=== PATIENT | male | born 2000 | race Caucasian/White ===

== ENCOUNTER 2019-04-10 05:20 | Emergency (ER) | payer BC, SELFPAY ==
[2019-04-10 05:26] VITALS: BP 127/68; PULSE 81; RESP 18; TEMP 37.4; O2SAT 98
--- NOTE | 2019-04-10 05:34 | W.ED.GENAD ---
Discharge Plan Disposition Patient Disposition: STILL A PATIENT Condition: Good Discharge Details Chief Complaint: Abd Prob Clinical Impression: Gastritis, Gastric ulcer Primary Care Provider: Pastor Alarcon ED Provider: Pavan Ribeiro Home Meds and New Rx's Prescriptions: New pantoprazole [Protonix] 40 mg tablet,delayed release (DR/EC) 40 mg PO DAILY Qty: 60 RF: 0 No Action ibuprofen 600 MG tablet 600 mg PO Q6H PRN (Reason: Pain) Qty: 20 RF: 0 Discharge Instructions Instructions: Gastritis (ED) Additional Instructions: At this time your labs are normal, I suspect that your symptoms are secondary to a mild gastric ulcer. Please take the medication Protonix as directed to help improve your stomach lining and reduce any potential ulcers. Please continue to avoid any spicy foods, citrus-based products, tomato-based products. If you notice any worsening of your symptoms, or any new symptoms such as vomiting, diarrhea, fever, chills, shortness of breath, chest pain, numbness, weakness, or fainting , please return immediately to the emergency department for reevaluation. Please follow up with your primary care provider as soon as possible for reassessment and reevaluation. As always, it was a pleasure participating in your medical care today. Stand Alone Forms: Work Release Referrals: Pastor Alarcon [Primary Care Provider] - Discharge Data Discharge Date/Time-TO BE ENTERED AT DEPARTURE: 04/10/19 08:41 Medical Decision Making <Kieran Wang DO - Last Filed: 04/10/19 21:41> This is a 18-year-old male who presents with 4 weeks of mild epigastric achiness. No red flags of vomiting or diarrhea. No hematemesis. Exam demonstrates a notably nontender abdomen with no significant epigastric or generalized abdominal tenderness. No clinical evidence of an acute surgical abdomen. Suspect that patient's symptoms likely secondary to mild gastric ulcer or gastritis. We will get a CT scan to rule out acute process, evaluate for pancreatitis, and reassess. 7:33 AM The patient's laboratory work-up has returned, no significant abnormalities, normal lipase, normal urinalysis, no clinical evidence of significant pancreatitis or other abnormality. No white count or left shift. Still pending CT results at this time, if CT scan is negative I feel that the patient be discharged home on antacid medications with close follow-up with his primary care provider. Repeat abdominal assessment demonstrates no clinical evidence of an acute surgical abdomen. Case will be signed out to my colleague Dr. Ventura for final disposition pending CT scan results. <Pavan Ribeiro MD - Last Filed: 04/10/19 08:38> 8:37 Patient resting comfortably, repeat abd exam snt without rebound/guarding pt indicates that discomfort is milder but continues to be localized epigastrium. CT results normal - w/o evidence of appendicitis. RTER discussed including limits of CT scanning. Pt agrees to RTER and fu plan will dc as above. HPI <Kieran Wang DO - Last Filed: 04/10/19 21:41> General Date/Time Provider Initiated Documentation: 04/10/19 05:25. HPI Narrative: This is a 18-year-old male with no past medical history who presents today for evaluation of epigastric pain for the last 4 weeks. He describes the pain as a mild achy sensation. It is not worsened with food. It is worse in the morning. He denies any relieving factors. He has been avoiding any spicy foods for the last few weeks. He denies any vomiting, nausea, or diarrhea. He denies any dark or tarry stools, hematochezia melena or acholic stool. Pain does not radiate to the lower aspect of his abdomen. He denies any back or flank pain. He denies any urinary frequency. He denies any previous abdominal surgeries, significant alcohol use, or history of pancreatitis. He denies any other complaints at this time. No other modifying factors. Related Data Home Medications Medication Instructions Recorded Confirmed ibuprofen 600 mg PO Q6H PRN #20 tab 06/29/17 04/10/19 pantoprazole [Protonix] 40 mg PO DAILY #60 tab 04/10/19 Previous Rx's Medication Instructions Recorded ibuprofen 600 mg PO Q6H PRN #20 tab 06/29/17 pantoprazole [Protonix] 40 mg PO DAILY #60 tab 04/10/19 Allergies Allergy/AdvReac Type Severity Reaction Status Date / Time No Known Allergies Allergy Unverified 06/29/17 07:58 General Stated Complaint: Abd Prob MAREK: 3 Review of Systems <Kieran Wang DO - Last Filed: 04/10/19 21:41> Review of Systems All systems reviewed & are unremarkable except as noted in HPI and below PFSH <Kieran Wang, DO - Last Filed: 04/10/19 21:41> Medical History Asthma Pneumonia Surgical History (Updated 12/31/16 @ 10:45 by Buffy Gaspar) wisdom tooth extractions Family History Mother Fibromyalgia Father Hypertension Brother No problems noted. Other Hematuria Social History Smoking/Tobacco Use Status: Never Drug use: Never Do you feel safe at home: Yes Do you feel safe in your relationship?: Yes Exam <Kieran Wang DO - Last Filed: 04/10/19 21:41> Narrative Exam Narrative: 1.Const: Well-nourished, Well-developed, appearing stated age 2.Eyes: PERRL, no conjunctival injection, and symmetrical lids. 3.ENT: Atraumatic external nose and ears. Moist MM. Neck: Symmetric, trachea midline, No thyromegaly. 4.CVS: +S1/S2, No murmurs or gallops. Peripheral pulses 2+ and equal in all extremities. Brisk capillary refill in all extremities. 5.RESP: Unlabored respiratory effort. Clear to auscultation bilaterally. No wheezes rales or rhonchi 6.GI: Soft, Nontender/Nondistended, No hepatosplenomegaly. No guarding or rebound. No pain at McBurney's point, negative Degroot sign, no CVA tenderness. 7.MSK: Normocephalic/Atraumatic, Extremities w/o deformity or ttp No cyanosis or clubbing, Normal movement of all extremities 8.Skin: Warm, Dry. No rashes or lesions. 9.Neuro: inflated pad buffer II-XII grossly intact. Sensation grossly intact, no focal neurologic deficits. 10.Psych: (AAO) x3. Appropriate mood and affect Course <Kieran Wang DO - Last Filed: 04/10/19 21:41> Vital Signs Temperature 37.4 C 04/10/19 05:26 Pulse 81 04/10/19 05:26 Respiratory Rate 18 04/10/19 05:26 Blood Pressure 127/68 04/10/19 05:26 Pulse Oximetry 98 04/10/19 05:26 Temperature 37.4 C 04/10/19 05:26 Temperature Source Temporal Artery Scan 04/10/19 05:26 Pulse 81 04/10/19 05:26 Respiratory Rate 18 04/10/19 05:26 Blood Pressure 127/68 04/10/19 05:26 Blood Pressure Position Supine 04/10/19 05:26 Pulse Oximetry 98 04/10/19 05:26 Oxygen Delivery Method Room Air 04/10/19 05:26 Oxygen Flow Rate 0 04/10/19 05:26 Sign Out <Kieran Wang DO - Last Filed: 04/10/19 21:41> Sign Out Data: Sign Out Comment: Pending CT results, expected to be negative for acute surgical process. Suspect that symptoms are secondary to mild gastritis from peptic ulcer disease. Last updated by Kieran Wang DO at 04/10/19 07:40
[2019-04-10 06:00] LABS: Abs Immature Grans 0.02 k/cumm (0.0-0.09); Absolute Basophil Count 0.05 k/cumm (0.0-0.2); Absolute Eosinophil Count 0.14 k/cumm (0.0-0.7); Absolute Lymphocyte Count 1.31 k/cumm (1.2-3.4); Absolute Monocyte Count 0.48 k/cumm (0.11-0.7); Absolute Neutrophil Count 4.39 k/cumm (1.2-6.7); Basophils % 0.8; Eosinophils % 2.2; HCT 43.5 % (40.0-50.0); HGB 15.4 g/dL (13.5-17.5); Immature Grans % 0.3; Lymphocytes % 20.5; Mean Corp. HGB Concentration 35.4 g/dL (32.0-36.0); Mean Corpuscular Hemoglobin 28.8 pg (27.0-33.0); Mean Corpuscular Volume 81.5 fL (80-95); Mean Platelet Volume 10.7 fL (8.0-11.0); Monocytes % 7.5; Neutrophils % 68.7; Platelet Count 252 x1000/uL (130-400); RBC 5.34 m/cumm (4.50-6.00); RBC Distribution Width 12.9 % (11.8-14.1); White Blood Cell Count 6.39 k/cumm (4.4-10.8)
[2019-04-10] MEDS: Omnipaque 350 MG/ML 100 ML BTL IJ (06:15)
[2019-04-10 06:16] LABS: Bilirubin Negative (Negative); Blood Trace-lysed (Negative); Clarity Clear (Clear); Glucose Negative (Negative); Ketones Negative (Negative); Leukocyte Esterase Negative (Negative); Nitrite Negative (Negative); Specific Gravity 1.025 (1.005-1.025); Urobilinogen 0.2 EU/dL (Up TO 0.2); pH 5.5 (5-8)
--- NOTE | 2019-04-10 06:16 | DI.CT_ITS ---
SYMPTOM/DIAGNOSIS: EPIGASTRIC PAIN FOR 2-[address] ABDOMEN AND PELVIS: CT scan of the abdomen and pelvis was performed following the uneventful administration of intravenous contrast material. There are no priors for comparison. The visualized lung bases are clear. The liver is normal in size. No suspicious hepatic masses seen. The portal, superior mesenteric and splenic veins are patent. The gallbladder is negative. There is no biliary ductal dilatation. The pancreas is unremarkable as are the spleen, adrenal glands, kidneys, ureters and bladder. The reproductive glands are unremarkable. The aorta is of normal caliber. No significant abdominal or pelvic adenopathy, ascites or pneumoperitoneum is present. The bowel shows no evidence of obstruction or inflammation. No findings to suggest an acute appendicitis are present. No acute osseous abnormality is identified. IMPRESSION: No evidence of an acute abdomen.
[2019-04-10 06:24] LABS: Bacteria Negative HPF (Negative); C & S Indicated? No; Casts Negative LPF (Negative); Crystals Negative HPF (Negative); Epithelial Cells Negative HPF (Negative); Mucus Negative (Negative); RBC 0-2 (0-2); WBC 0-2 HPF (0-5)
[2019-04-10 06:25] LABS: ALT 21 U/L (12-78); AST 18 U/L (15-37); Albumin 4.7 g/dL (3.4-5.0); Alkaline Phosphatase 84 U/L (46-116); Anion Gap 9.3 mmol/L (3-11); BUN 20 mg/dL (7-18); Bilirubin, Total 0.6 mg/dL (0.2-1.0); CO2 28.7 mmol/L (21.0-32.0); CREATININE 0.98 mg/dL (0.70-1.30); Calcium 9.4 mg/dL (8.5-10.1); Chloride 104 mmol/L (98-107); Glucose 100 mg/dL (70-100); Lipase 119 U/L (73-393); Potassium 3.4 mmol/L (3.5-5.1); Sodium 142 mmol/L (136-145); Total Protein 7.7 g/dL (6.4-8.2)
--- NOTE | 2019-04-10 08:32 | DI.VRAD_ITS ---
EXAM: CT Abdomen and Pelvis With Contrast EXAM DATE/TIME: 04/10/2019 5:34 AM CLINICAL HISTORY: 18 years old, male; Abdominal pain; Localized; Upper; Additional info: Nausea, vomiting, diarrhea TECHNIQUE: Imaging protocol: Axial computed tomography images of the abdomen and pelvis with intravenous contrast. Coronal and sagittal reformatted images were created and reviewed. Radiation optimization: All CT scans at this facility use at least one of these dose optimization techniques: automated exposure control; mA and/or kV adjustment per patient size (includes targeted exams where dose is matched to clinical indication); or iterative reconstruction. Contrast material: [id number]; Contrast volume: 100 ml; Contrast route: IV 18G RAC; COMPARISON: No relevant prior studies available. FINDINGS: Liver: Normal. No mass. Gallbladder and bile ducts: Normal. No calcified stones. No ductal dilation. Pancreas: Normal. No ductal dilation. Spleen: Normal. No splenomegaly. Adrenals: Normal. No mass. Kidneys and ureters: Normal. No hydronephrosis. Stomach and bowel: Normal. No obstruction. No mucosal thickening. Appendix: No evidence of appendicitis. Intraperitoneal space: Normal. No free air. No significant fluid collection. Vasculature: Normal. No abdominal aortic aneurysm. Lymph nodes: Normal. No enlarged lymph nodes. Bladder: Unremarkable as visualized. Reproductive: Unremarkable as visualized. Bones/joints: No acute fracture. No dislocation. Soft tissues: Unremarkable. IMPRESSION: No acute findings. Dictated and Authenticated by: Hali Infante MD. Ordering:DESHAUN Alcaraz MD
== END 2019-04-10 08:41 | disposition still patient (30) ==
PROVIDERS: Student in an Organized Health Care Education/Training Program; Emergency Provider Emergency Medicine; PCP Neuromusculoskeletal Medicine & OMM
DX: K29.00 Acute gastritis without bleeding (principal); K25.3 Acute gastric ulcer without hemorrhage or perforation
CPT/HCPCS: 36415; 80053; 83690; 99285; 74177; 81003; 81015; 85025; 99284; J3490

== ENCOUNTER 2024-06-13 15:21 | Emergency (ER) | payer BC, SELFPAY ==
[2024-06-13 15:27] VITALS: BP 140/87; PULSE 100; RESP 20; TEMP 37; O2SAT 98
[2024-06-13] MEDS: Lidocaine/Epinephri/Tetracaine Topical Gel 3 ML (16:55)
--- NOTE | 2024-06-13 16:58 | ED.GENADUL_ITS ---
Discharge Plan Disposition Patient Disposition: Home Discharge Details Clinical Impression: Facial laceration Primary Care Provider: Pastor Alarcon ED Provider: Jodie Brooks Home Meds and New Rx's Prescriptions: No Action No Known Home Meds Discharge Instructions Instructions: Laceration Repair With Glue ED Additional Instructions: I have placed a referral for care management to help you establish care with a primary care provider. Please keep your wound clean and dry. Wash daily with antibacterial soap and water. The Steri-Strip will fall off on its own, please do not pull at it. Do not apply any antibacterial ointment, as this may degrade the glue. Return to emergency care if you develop any signs of infection such as pus drainage, redness, swelling, warmth, foul odor, opening of the laceration, or if you are very concerned and need to be rechecked again immediately Referrals: [facility] [Provider Group] HPI General Date/Time Provider Initiated Documentation: 06/13/24 15:34 . HPI Narrative: Adilson is a 23-year-old male who presents to the emergency department today for evaluation of facial laceration. He reports that he was working on his car when the wrench slipped and hit him on the side of his face, just adjacent to his right eye. He denies hitting his eye, vision change, unusual headache, nausea/vomiting. He was able to stop the bleeding with pressure applied. Last tetanus was this summer when he stepped on a nail. Denies significant past medical history. He does not have a PCP. Physical exam remarkable for 0.5 cm linear laceration approximately 2 cm lateral to R eye. No active bleeding at this time. No pain with palpation of orbital area around laceration. full painless range of motion to eye, PERRL. Painless range of motion to neck. Head is otherwise atraumatic. History and presentation consistent with uncomplicated facial laceration, no concern for fracture or intracranial head injury at this time based on reassuring history and physical exam. Wound was extensively irrigated with 100 cc tap water and anesthetized with let. Dermabond and Steri-Strip were applied with good approximation of edges. Patient tolerated procedure well. Reviewed discharge instructions with patient, including wound care, importance of establishing care with a PCP, and red flags indicate need for return to emergency care. He voices agreement with plan of care. Related Data Home Medications ?Medication ?Instructions ?Recorded ?Confirmed Unknown [No Known Home Meds] 06/13/24 06/13/24 Allergies Allergy/AdvReac Type Severity Reaction Status Date / Time No Known Allergies Allergy Verified 06/13/24 15:30 General Stated Complaint: Laceration MAREK: 4 Review of Systems Narrative: see HPI Exam Const General: cooperative, healthy appearing, comfortable, no acute distress, well developed and well groomed Nutritional Appearance: average body habitus Orientation: alert and oriented x3 HENMT Head: normal to inspection, no raccoon eyes and No periorbital ecchymosis Ears: hearing grossly normal bilaterally General nose exam: external nose normal Face images: 2 1. 0.5 cm linear laceration, no FB visualized Eyes Eyelids: eyelids normal Conjunctivae: conjunctivae normal Pupils: PERRL EOM: EOM intact bilaterally Neck Neck: normal visual inspection Course Vital Signs Vital signs: Vital Signs Temperature 37.0 C 06/13/24 15:27 Pulse 100 H 06/13/24 15:27 Respiratory Rate 20 06/13/24 15:27 Blood Pressure 140/87 06/13/24 15:27 Pulse Oximetry 98 06/13/24 15:27 Temperature 37.0 C 06/13/24 15:27 Pulse 100 H 06/13/24 15:27 Respiratory Rate 20 06/13/24 15:27 Respiratory Effort Normal, Non-Labored 06/13/24 15:30 Blood Pressure 140/87 06/13/24 15:27 Pulse Oximetry 98 06/13/24 15:27 Oxygen Delivery Method Room Air 06/13/24 15:27 Oxygen Flow Rate 0 06/13/24 15:27 Pain Level 3 06/13/24 15:27 Medical Decision Making Quality:SDOH Health Related Social Needs: 2 No Data to Display PFSH All Active Problems (Updated 06/13/24 @ 16:57 by Jdoie Andrew) Facial laceration (Acute) Medical History (Updated 06/13/24 @ 16:57 by Jodie Andrew) Asthma Pneumonia Surgical History (Updated 12/31/16 @ 10:45 by Buffy Gaspar NP) wisdom tooth extractions Family History Mother Fibromyalgia Father Hypertension Brother No problems noted. Other Hematuria Social History Smoking/Tobacco Use Status: Never Smoking risk assessment performed?: Yes Alcohol Intake: current Alcohol Intake frequency: 0-2 drinks per day Drug use: Never Substance use type: does not use Do you feel safe at home: Yes Do you feel safe in your relationship?: Yes PAWSS Have you Been Recently Intoxicated or Drunk Within the Last 30 days?: No Have you Ever Experienced Previous Episodes of Alcohol Withdrawal?: No Have you ever Experienced Withdrawal Seizures?: No Have you ever Experienced Delirium Tremens(DT)s?: No Have you ever undergone Alcohol Rehabilitation Treatment (i.e, inpt ot outpatient treatment programs)?: No Have you ever Experienced Blackouts?: No Have you ever Combined Alcohol with other Downers within the last 90 days?: No Have you ever Combined Alcohol with any other Substance of Abuse during the last 90 days?: No Positive Blood Alcohol level on Presentation? [PCS.BAL]: No Evidence of Increased Autonomic Activity (i.e. HR>120, tremor, sweating, agitation, nausea)?: No Result: 0
== END 2024-06-13 17:06 | disposition home or self-care (01) ==
PROVIDERS: Emergency Provider Nurse Practitioner Family; PCP Neuromusculoskeletal Medicine & OMM
DX: S01.411A Laceration without foreign body of right cheek and temporomandibular area, initial encounter (principal); W22.8XXA Striking against or struck by other objects, initial encounter; Y93.89 Activity, other specified; Y92.89 Other specified places as the place of occurrence of the external cause
CPT/HCPCS: 12011; 99283

== ENCOUNTER 2025-03-14 23:13 | Emergency (ER) | payer BC, SELFPAY ==
[2025-03-14 23:14] VITALS: BP 162/98; PULSE 89; RESP 20; TEMP 37; O2SAT 96
--- NOTE | 2025-03-14 23:14 | W.ED.GENAD ---
Discharge Plan Disposition Patient Disposition: Home Condition: Improving Discharge Details Clinical Impression: Headache Primary Care Provider: Pastor Alarcon ED Provider: Pastor Tesfaye Home Meds and New Rx's Prescriptions: No Action No Known Home Meds Discharge Instructions Instructions: Headache, Adult ED Additional Instructions: You were seen for a headache similar to previous headaches and was treated with IV fluids and medications with good results. You should follow-up with primary care to discuss possible preventative medications for headaches, referral to neurology if they continue to be bothersome. Would recommend rest and hydration over the next day. You may take acetaminophen or ibuprofen for residual headache. Return to ED for severe worsening headache, mental status change/confusion, neurologic change, persistent vomiting, other concerns. Referrals: [facility] [Provider Group] [facility] General Mode of arrival: ambulatory. Date/Time Provider Initiated Documentation: 03/14/25 23:14. Limitations to Documentation: no limitations. Information obtained by: patient and RN notes reviewed. HPI Narrative: Patient presents to ED with headache for the last 3 days. Patient reports history of migraines which are difficult to control. In the past he usually just has to let them go away. This headache will not go away and is keeping him up and preventing him from sleeping. He had been prescribed a triptan in the past with no relief from the headaches. He is not on anything prophylactically for headaches. He is seen at the [facility]. He has not been seen by neurology. He is reporting that he had a fever on Friday which triggered the headache. He has not had fever since then. He has no other ill symptoms. Headache is localized and not generalized. Has some mild intermittent nausea. He has no neurologic change. No head trauma. Related Data Home Medications ?Medication ?Instructions ?Recorded ?Confirmed Unknown [No Known Home Meds] 06/13/24 03/15/25 Allergies Allergy/AdvReac Type Severity Reaction Status Date / Time No Known Allergies Allergy Verified 06/13/24 15:30 General MAREK: 4 Exam Narrative Exam Narrative: Const: WDWN male in NAD. VS per triage. HEENT: NC/AT. Normal facial exam. Eyes: PERRL and EOMI. Neck: Supple. Trachea midline. No meningeal signs. Lungs: Normal respiratory effort. Lungs are clear. Cor: RRR without murmur. Neuro: A+O x 3. Normal speech, mentation, gait. Cranial nerves II - XII grossly intact. No gross motor or sensory deficit. Ext: Normal ROM Skin: No rash. Medical Decision Making Patient presenting to ED with complaint of headache for the last 3 days. Reports history of same and describes them as migraines. He reports that a fever on Friday seem to trigger the headache. Fever has not returned and he otherwise feels well but headache continues. He is completely neurologically intact. He has no evidence of meningeal signs, neck pain. He is not febrile here. I do not feel the patient requires any type of imaging, laboratory studies or lumbar puncture. Will plan IV fluids, ketorolac, prochlorperazine and reevaluate. Patient's headache improved after fluids and medications. Reports only hurts if he happens to cough at this point. Will plan discharge home. Suggested to follow-up with primary care to discuss potential preventative medications, neurology referral. Return precautions provided. [facility] All Active Problems (Updated 03/15/25 @ 00:32 by Pastor Tesfaye MD) Headache (Acute) Medical History Asthma Surgical History wisdom tooth extractions Family History Mother Fibromyalgia Father Hypertension Brother No problems noted. Other Hematuria Social History Smoking/Tobacco Use Status: Never Smoking risk assessment performed?: Yes Alcohol Intake: current Alcohol Intake frequency: 0-2 drinks per day Drug use: Never Substance use type: does not use Do you feel safe at home: Yes Do you feel safe in your relationship?: Yes
[2025-03-14 23:17] VITALS: BP 162/98; PULSE 89; RESP 20; TEMP 37; O2SAT 96
[2025-03-14] MEDS: Ketorolac 15 MG/ML VIAL IVP (23:38)
[2025-03-14] MEDS: Prochlorperazine 10 MG/2 ML VIAL IVP (23:38)
[2025-03-14] MEDS: Normal Saline 1,000 ML 1000 ML IV (23:39)
[2025-03-15 00:46] VITALS: BP 162/98; PULSE 89; RESP 20; TEMP 37; O2SAT 96
--- NOTE | 2025-03-17 15:56 | NUR.NOTE ---
Patient called asking for the result of the COVID test for the swab that was performed. There was not order and no documentation for this test. Per Dr Wang I told the patient that he could return to the ED, go to an [facility] or do a home COVID test. He is having some loss of smell but is not really worried. Nursing Note:
== END 2025-03-15 00:43 | disposition home or self-care (01) ==
PROVIDERS: Emergency Provider Emergency Medicine; PCP Neuromusculoskeletal Medicine & OMM
DX: R51.9 Headache, unspecified (principal)
CPT/HCPCS: 99283; 99284; 96374; 96375; 96361; J0780; J1885